=== PATIENT | female | born 1990 | race Two or more races ===

== ENCOUNTER 2022-07-31 18:39 | Emergency (ER) | payer MEDICAID ==
[~2022-07-31] VITALS: Ht 170.2 cm; Wt 96.2 kg
[2022-07-31] MEDS ORDERED: IV NS 0.9% 1,000 ML BAG IV ONE (19:00)
--- NOTE | 2022-07-31 19:10 | NUR ---
IV INSERTED RAC 20G
--- NOTE | 2022-07-31 19:10 | NUR ---
BIB RA 60 C/O DIZZINESS X COUPLE WEEKS HAS BEEN SEEN FOR THIS PRIOR
--- NOTE | 2022-07-31 19:17 | NUR ---
X-RAY AT BEDSIDE
--- NOTE | 2022-07-31 19:21 | NUR ---
REPORT GIVEN TO NURSE BEARD FOR FATEMEH
[2022-07-31 19:22] LABS: BASOPHILS % (AUTO) 0.3 % (0.0-2.0); EOSINOPHILS % (AUTO) 0.3 % (0.0-6.0); HEMATOCRIT 39 % (33-45); HEMOGLOBIN 12.4 g/dL (11.5-14.8); LYMPHOCYTES # (AUTO) 1.6 K/uL (0.8-4.8); LYMPHOCYTES % (AUTO) 12.2 % (20.0-44.0); MEAN CORPUSCULAR HGB CONC 32 g/dl (31.0-36.0); MEAN CORPUSCULAR VOLUME 86 fL (82-100); MONOCYTES # (AUTO) 0.5 K/uL (0.1-1.30); NEUTROPHILS # (AUTO) 11.2 K/uL (1.8-8.9); NEUTROPHILS % (AUTO) 83.2 % (43.0-81.0); PLATELET COUNT (AUTO) 329 K/uL (150-450); WHITE BLOOD COUNT (AUTO) 13.4 K/uL (4.3-11.0)
[2022-07-31 19:41] LABS: CALCIUM, SERUM 9.6 mg/dL (8.5-10.1); CARBON DIOXIDE 21 mmol/L (21-32); CHLORIDE 106 mmol/L (98-107); CREATININE 0.7 mg/dL (0.6-1.3); GLUCOSE 98 mg/dL (74-106); POTASSIUM 3.2 mmol/L (3.5-5.1); SODIUM SERUM 141 mmol/L (136-145); UREA NITROGEN, BLOOD 10 mg/dL (7-18)
[2022-07-31] MEDS ORDERED: ALPRAZOLAM 0.5 MG TABLET ONE (20:29)
[2022-07-31] MEDS ORDERED: ALPRAZOLAM 0.5 MG TABLET PO ONE (20:30)
--- NOTE | 2022-07-31 20:40 | NUR ---
Patient discharged to home in stable condition. Written and verbal after care instructions given. Patient verbalizes understanding of instruction.IV removed. Catheter intact and site benign. Pressure and 4x4 applied to site. No bleeding noted.
[2022-07-31 20:45] VITALS: BP 135/80
== END 2022-07-31 20:46 | disposition home or self-care (01) ==
LOC: ER 18:42
DX: R00.2 Palpitations (principal); F41.9 Anxiety disorder, unspecified
CPT/HCPCS: 99285; 96360; 71045; 93005; 85025; 80048; 84703; 36415; 84484; J7030

== ENCOUNTER 2022-08-02 20:53 | Emergency (ER) | payer MEDICAID ==
[~2022-08-02] VITALS: Ht 170.2 cm; Wt 96.2 kg
--- NOTE | 2022-08-02 21:13 | NUR ---
[id number] FROM HOME FOR ANXIETY SECONDARY TO VERTIGO. PT DIAGNOSED WITH EPISODES OF VERTIGO AND BECOMES VERY ANXIOUS WHEN EPISODES OCCUR. PRESCRIBED WITH MECLIZINE WITH MINIMLA IMPROVEMENT LAST TAKEN AT 1600 AND ATIVAN NOT TAKEN TODAY. PT SUPPOSED TO HAVE A HOLTER MONITOR ON SATURDAY FOR EPISODES OF TACHYCARDIA. ON AMOXICILLIN FOR EAR INFX. PT VERY ANXIOUS ON TRIAGE. V/S WNL TACHY AT 111.
--- NOTE | 2022-08-02 21:14 | NUR ---
UPDATED ELISHA (FATHER) [phone]
--- NOTE | 2022-08-02 21:35 | NUR ---
Patient AOx4, able to express her concerns. Gómez states she has been feeling anxious for a while, has an out pt appt with software design analyst this coming Saturday. Usman with no signs of distress, VSS. Discussed plan of care, kam verbalized agreement.
[2022-08-02] MEDS ORDERED: IV NS 0.9% 1,000 ML BAG IV ONE (23:00)
[2022-08-02] MEDS ORDERED: ALPRAZOLAM 0.5 MG TABLET PO ONE (23:00)
[2022-08-02] MEDS ORDERED: ALPRAZOLAM 0.5 MG TABLET ONE (23:02)
[2022-08-02 23:17] LABS: BASOPHILS % (AUTO) 0.4 % (0.0-2.0); EOSINOPHILS % (AUTO) 3.3 % (0.0-6.0); HEMATOCRIT 37 % (33-45); HEMOGLOBIN 12.4 g/dL (11.5-14.8); LYMPHOCYTES # (AUTO) 0.8 K/uL (0.8-4.8); LYMPHOCYTES % (AUTO) 9.6 % (20.0-44.0); MEAN CORPUSCULAR HGB CONC 33 g/dl (31.0-36.0); MEAN CORPUSCULAR VOLUME 83 fL (82-100); MONOCYTES # (AUTO) 0.3 K/uL (0.1-1.30); MONOCYTES % (AUTO) 3.3 % (2.0-12.0); NEUTROPHILS # (AUTO) 6.9 K/uL (1.8-8.9); NEUTROPHILS % (AUTO) 83.4 % (43.0-81.0); PLATELET COUNT (AUTO) 326 K/uL (150-450); RED BLOOD CELL COUNT(AUTO) 4.51 MIL/uL (4.0-5.2); WHITE BLOOD COUNT (AUTO) 8.3 K/uL (4.3-11.0)
[2022-08-02 23:40] LABS: ALANINE AMINOTRANSFERASE 58 U/L (12-78); ALBUMIN 4.1 g/dL (3.4-5.0); ALKALINE PHOSPHATASE 106 U/L (46-116); ASPARTATE AMINOTRANSFERASE 24 U/L (15-37); BILIRUBIN,DIRECT 0.1 mg/dL (0.0-0.2); BILIRUBIN,TOTAL 0.3 mg/dL (0.2-1.0); CALCIUM, SERUM 9.9 mg/dL (8.5-10.1); CARBON DIOXIDE 22 mmol/L (21-32); CHLORIDE 106 mmol/L (98-107); CREATININE 0.8 mg/dL (0.6-1.3); GLUCOSE 104 mg/dL (74-106); POTASSIUM 3.6 mmol/L (3.5-5.1); SODIUM SERUM 140 mmol/L (136-145); TOTAL PROTEIN, SERUM 8.4 g/dL (6.4-8.2); UREA NITROGEN, BLOOD 11 mg/dL (7-18)
[2022-08-03] MEDS ORDERED: METO-295 PO (00:30)
[2022-08-03] MEDS ORDERED: ALPR0.255 PO (00:30)
[2022-08-03 00:41] LABS: BILIRUBIN,URINE NEGATIVE (NEGATIVE); COLOR,URINE YELLOW (YELLOW); LEUKOCYTE ESTERASE ,URINE 3+ (NEGATIVE); NITRITE, URINE NEGATIVE (NEGATIVE); PH,URINE 7.5 (5.0-8.0); PROTEIN,URINE NEGATIVE (NEGATIVE); UGLUCOSE NEGATIVE (NEGATIVE); UROBILINOGEN,URINE 0.2 EU/dL (0.2)
[2022-08-03 00:47] LABS: BACTERIA,URINE Rare /HPF (None Seen); RBC,URINE 0-2 /HPF (0-2); SQUAMOUS EPITHELIAL CELL,UR Few /HPF (None Seen)
[2022-08-03 01:42] VITALS: BP 112/68
[2022-08-03] MEDS ORDERED: METO25TA4 PO (12:04)
[2022-08-03] MEDS ORDERED: AMOX500C2 PO (12:06)
[2022-08-03] MEDS ORDERED: LORA-259 PO (12:06)
[2022-08-03] MEDS ORDERED: MECL25TA65 PO (12:07)
== END 2022-08-03 01:42 | disposition home or self-care (01) ==
LOC: ER 21:01
DX: R42 Dizziness and giddiness (principal); F41.9 Anxiety disorder, unspecified
CPT/HCPCS: 99284; 96360; 93005; 85025; 80048; 87086; 80076; 84703; 81001; 36415; 84484; J7030

== ENCOUNTER 2022-08-03 03:49 | Inpatient (IN) | payer MEDICAID ==
[~2022-08-03] VITALS: Ht 170.2 cm; Wt 96.2 kg
[~2022-08-03 03:49] MED LIST: ALPR0.255 PO; METO-295 PO
--- NOTE | 2022-08-03 03:50 | NUR ---
[id number] FROM HOME FOR RAPID HR IN 180S WHILE TAKING A SHOWER. HX OF RAPID HR AND PLANNING TO GET HOLTER MONITOR TOMORROW. DISCHARGED EARLIER THIS EVENING WITH [employer] JUSTICE ASSOSCIATED SYMTPOMS OF ANXIETY AND DIZZINESS. PT AWAKE AND ALERT X4 RR EVEN AND UNLABORED ENDORSES GENERALIZED CHEST DISCOMFORT. EMS ECG READ AFLUTTER WITH RVR RATE IN 130-150S WITH EMS. MD AT BEDSIDE FOR EVAL. PLACED ON TRANSACTIONAL PARALEGAL AND PULSE OX FOR CONTINUOUS MONITORING
[2022-08-03] MEDS ORDERED: IV NS 0.9% 1,000 ML BAG IV ONE (04:00)
--- NOTE | 2022-08-03 04:00 | NUR ---
JOY OPERATOR HELPER IV LAC #20G S/L
--- NOTE | 2022-08-03 04:01 | NUR ---
WINDOW MACHINE OPERATOR AT PT'S BEDSIDE
--- NOTE | 2022-08-03 04:14 | NUR ---
OFFICER LIEUTENANT AT PT'S BEDSIDE
--- NOTE | 2022-08-03 04:16 | NUR ---
COVID ANTIGEN SWAB COLLECTED AND SENT TO LAB
[2022-08-03 04:33] LABS: BASOPHILS % (AUTO) 0.3 % (0.0-2.0); EOSINOPHILS % (AUTO) 0.5 % (0.0-6.0); HEMATOCRIT 37 % (33-45); HEMOGLOBIN 11.8 g/dL (11.5-14.8); LYMPHOCYTES % (AUTO) 39.6 % (20.0-44.0); MEAN CORPUSCULAR HGB CONC 33 g/dl (31.0-36.0); MEAN CORPUSCULAR VOLUME 84 fL (82-100); MONOCYTES # (AUTO) 0.5 K/uL (0.1-1.30); MONOCYTES % (AUTO) 6.6 % (2.0-12.0); PLATELET COUNT (AUTO) 301 K/uL (150-450); RED BLOOD CELL COUNT(AUTO) 4.32 MIL/uL (4.0-5.2); WHITE BLOOD COUNT (AUTO) 7.6 K/uL (4.3-11.0)
[2022-08-03 04:43] LABS: CALCIUM, SERUM 9.5 mg/dL (8.5-10.1); CARBON DIOXIDE 19 mmol/L (21-32); CHLORIDE 106 mmol/L (98-107); GLUCOSE 122 mg/dL (74-106); POTASSIUM 2.9 mmol/L (3.5-5.1); SODIUM SERUM 138 mmol/L (136-145); UREA NITROGEN, BLOOD 10 mg/dL (7-18)
[2022-08-03 04:49] LABS: ALANINE AMINOTRANSFERASE 53 U/L (12-78); ALBUMIN 3.8 g/dL (3.4-5.0); ALKALINE PHOSPHATASE 93 U/L (46-116); ASPARTATE AMINOTRANSFERASE 22 U/L (15-37); BILIRUBIN,DIRECT 0.1 mg/dL (0.0-0.2); BILIRUBIN,TOTAL 0.3 mg/dL (0.2-1.0); TOTAL PROTEIN, SERUM 7.8 g/dL (6.4-8.2)
[2022-08-03] MEDS ORDERED: CT SWABBABLE VALVE TRANS SET 1 EA INFUS.SET MC ONE (05:41)
[2022-08-03] MEDS ORDERED: POTASSIUM CHLORIDE 20 MEQ TAB.PRT.SR PO ONE ×3 (05:41→10:00)
[2022-08-03] MEDS ORDERED: IOHEXOL-350 100 ML VIAL IV ONE (05:41)
[2022-08-03] MEDS ORDERED: IV NS 0.9% 250 ML IV ONE (05:41)
--- NOTE | 2022-08-03 05:45 | NUR ---
DR SENA ON PHONE WITH DR RUSSELL
[2022-08-03] MEDS ORDERED: diphenhydrAMINE HCL 50 MG/ML VIAL IV ONE (06:00)
[2022-08-03] MEDS ORDERED: methylPREDNISolone SOD SUCC 125 MG/2ML VIAL IV ONE (06:00)
[2022-08-03] MEDS ORDERED: diphenhydrAMINE HCL 50 MG/ML VIAL ONE (06:02)
[2022-08-03] MEDS ORDERED: methylPREDNISolone SOD SUCC 125 MG/2ML VIAL ONE (06:03)
--- NOTE | 2022-08-03 06:40 | NUR ---
PT TO CT W/ TECH
--- NOTE | 2022-08-03 06:50 | NUR ---
PT BACK FROM CT
--- NOTE | 2022-08-03 07:29 | NUR ---
BED ASSIGNED 108
--- NOTE | 2022-08-03 07:56 | NUR ---
RN NOTE RECEIVED REPORT FROM SHELDON Stockton RN FROM ED. PATIENT IS ASSIGNED TO ROOM 108 TELE.
--- NOTE | 2022-08-03 07:57 | NUR ---
report given to angel luis for contiuation of care
[2022-08-03 08:00] VITALS: BP 117/77
--- NOTE | 2022-08-03 08:00 | NUR ---
RN NOTE PATIENT ARRIVED VIA GURNEY ACCOMPANIED BY GORDO BUI. PATIENT IS ALERT AND ORIENTED X4. VITALS TAKEN: BP: 117/77; HR: 92; BREATHING ON ROOM AIR O2 SAT OF 100%. RR: 17; ORAL TEMP: 98.1F. IV ACCESS ON LAC 20g. TELE MONITOR READING SR. BELONGING ACCOUNTED FOR: T-SHIRT, SANDALS, iPHONE. SKIN INTACT, AMBULATORY. WILL CONTINUE TO MONITOR
[2022-08-03] MEDS ORDERED: Potassium Chloride 10 MEQ in IV D5W 1,000 ML IV PRN (10:00)
[2022-08-03] MEDS ORDERED: METOPROLOL SUCCINATE 25 MG TAB.SR.24H PO SCH (10:00)
[2022-08-03 10:15] VITALS: BP_SYST 108; BP_SYST 126; BP_SYST 128; BP_DIAS 70; BP_DIAS 73; BP_DIAS 78
[2022-08-03 10:27] LABS: THYROID STIMULATING HORMONE 2.434 uIU/mL (0.358-3.74)
[2022-08-03 10:38] LABS: BILIRUBIN,URINE NEGATIVE (NEGATIVE); COLOR,URINE YELLOW (YELLOW); LEUKOCYTE ESTERASE ,URINE 2+ (NEGATIVE); NITRITE, URINE NEGATIVE (NEGATIVE); PROTEIN,URINE NEGATIVE (NEGATIVE); UGLUCOSE NEGATIVE (NEGATIVE); UROBILINOGEN,URINE 0.2 EU/dL (0.2)
[2022-08-03 11:02] LABS: BACTERIA,URINE Rare /HPF (None Seen); RBC,URINE 0-2 /HPF (0-2); SQUAMOUS EPITHELIAL CELL,UR Few /HPF (None Seen)
[2022-08-03] MEDS: MECLIZINE HCL 25 MG TABLET PO SCH ×3 (11:14→20:41)
[2022-08-03 12:00] VITALS: BP 101/52
[2022-08-03] MEDS ORDERED: METO25TA4 PO (12:04)
[2022-08-03] MEDS ORDERED: AMOX500C2 PO (12:06)
[2022-08-03] MEDS ORDERED: LORA-259 PO (12:06)
[2022-08-03] MEDS ORDERED: MECL25TA65 PO (12:07)
--- NOTE | 2022-08-03 12:36 | NUR ---
RN NOTE PATIENT SIGNED CONSENT FOR MRI BRAIN WITHOUT CONTRAST. CONSENT PLACED IN CHART
--- NOTE | 2022-08-03 14:12 | NUR ---
RN NOTE PATIENT WAS PICKED UP BY REILLY LUEVANO, VIA WHEELCHAIR FOR MRI.
--- NOTE | 2022-08-03 15:12 | NUR ---
RN NOTE PATIENT RETURNED FROM MRI AT THIS TIME.
[2022-08-03 16:00] VITALS: BP 98/45
--- NOTE | 2022-08-03 19:20 | NUR ---
RN NOTE RECEIVED PT FOR CONTINUITY OF CARE. PATIENT A/OX4 IN NO S/SX OF ACUTE DISTRESS AT THIS TIME; CURRENTLY ON ROOM AIR; WITH 02 SAT >95% AT THIS TIME. WITH IV ACCESS ON L AC#20 PATENT, INTACT AND FLUSHING WELL. WITH RUNNING IV FLUIDS ORDERED. WILL ENSURE SAFETY MEASURES WITHIN THE SHIFT. PATIENT BED ALARM IS ON. HEAD OF BED ELEVATED. BED IS LOCKED, IN LOWEST POSITION AND SIDE RAILS UP. CALL LIGHT WITHIN REACH OF THE PATIENT WILL CONTINUE TO MONITOR AND REASSESS FOR ANY CHANGES AND WILL CARRY OUT ANY ONGOING AND ACTIVE MD ORDER.
--- NOTE | 2022-08-03 19:54 | NUR ---
RN NOTE PATIENT IS A0X4, IN BED. TELE MONITOR READYING SR. BREATHING ON ROOM AIR WITH 02 SAT OF 99%. IV ACCESS ON LAC#20G RUNNING POTASSIUM CHLORIDE AT 100MLS/HR AT THIS TIME. BED LOCKED IN LOWEST POSITION. ALL SAFETY MEASURES IN PLACE. CALL LIGHT WITHIN REACH. WILL ENDORSE CONTINUITY OF CARE TO FORESTRY AID NURSE.
[2022-08-03 20:00] VITALS: BP_SYST 111; BP_SYST 125; BP_SYST 129; BP_DIAS 60; BP_DIAS 73; BP_DIAS 75
[2022-08-03] MEDS ORDERED: COSYNTROPIN 0.25 MG/VIAL VIAL IV ONE (20:00)
--- NOTE | 2022-08-03 20:40 | NUR ---
RN NOTE CALLED DR. BORJA, VERIFIED AND CONFIRM ORDER FOR COSYNTROPIN, HE SAID GIVE IT NOW THEN REDRAW CORTISOL LEVEL X2 30MINS APART UPON ADMINISTRATION. WILL CARRY OUT AND NOTIFIED LAB S/W CYN AND ANNE. OFFICE SERVICES SPECIALIST WELL AWARE.
--- NOTE | 2022-08-03 21:43 | NUR ---
RN NOTE ORDER SECURED FROM DR. BORJA: NORCO 5/325 Q4H PRN AND ZOFRAN 4MG IV Q4H PRN. RN ACKNOWLEDGED.
[2022-08-03] MEDS ORDERED: ONDANSETRON HCL/PF 4 MG/2 ML VIAL IV PRN (22:00)
[2022-08-03] MEDS ORDERED: HYDROCODONE/APAP 5/325MG TABLET PO PRN (22:00)
[2022-08-04] VITALS: BP_SYST 125; BP_SYST 129; BP_SYST 99; BP_DIAS 59; BP_DIAS 73; BP_DIAS 75
--- NOTE | 2022-08-04 01:58 | NUR ---
RN NOTE PT WOKE UP COMPLAINING PALPITATIONS AND A LITTLE CHEST PRESSURE. OFFERED O2 BUT PT SAID SHE IS BREATHING OK. SR ON MONITOR AND HR 80S. STILL SECURED ORDER FOR EKG. NOTIFIED RT. WILL CONTINUE TO MONITOR.
--- NOTE | 2022-08-04 03:00 | NUR ---
RN NOTE TO CHANGE IV FLUID OF PT; BUT IV FLUID D5W WITH 10MEQ POTASSIUM NOT AVAILABLE; WAS NOT SENT BY PHARMACY DURING THE CHANGE OF SHIFT LAST NIGHT, CHECKED WITH NSG SUP NOT AVAILABLE IN NIGHT LOCKER WILL F/U WITH PHARMACY ONCE OPEN. Addendum: 08/04/22 at 0702 by CHAYA HORNER RN @0700 CALLED PHARMACY AND S/W GENE. FOLLOWED UP WITH IV FLUID HE ACKNOWLEDGED. WILL SEND IV BAG LIZ. WILL ENDORSE TO AM SHIFT TO FOLLOW THROUGH. SALESPERSON SEWING MACHINES MADE AWARE.
[2022-08-04 04:00] VITALS: BP_SYST 129; BP_SYST 98; BP_SYST 99; BP_DIAS 54; BP_DIAS 59; BP_DIAS 73
[2022-08-04] MEDS: MECLIZINE HCL 25 MG TABLET PO SCH ×2 (04:30→13:34)
--- NOTE | 2022-08-04 06:31 | NUR ---
RN NOTE PATIENT REMAINS IN ROOM IN NO SIGNS OF RESPIRATORY DISTRESS, PATIENT STILL ON ROOM AIR; TOLERATING WELL SATURATING @ >95% SP02. SAFETY MEASURES IMPLEMENTED, BED IN LOWEST POSITION, LOCKED, SIDE RAILS UP, CALL LIGHT WITHIN REACH. ALL NEEDS AND ORDERS ADDRESSED DURING THE SHIFT. IV ACCESS MAINTAINED INTACT, SECURED AND FLUSHING WELL. ALL DUE MEDS GIVEN ORDERED & SCHEDULED; PATIENT TOLERATED WELL. PATIENT KEPT CLEAN AND COMFORTABLE WITHIN THE SHIFT. EKG DONE DURING THE SHIFT; NSR. PATIENT ENDORSED TO INCOMING SHIFT RN WITH STABLE VITAL SIGN AND FOR CONTINUITY OF CARE.
[2022-08-04 06:58] LABS: CALCIUM, SERUM 9.6 mg/dL (8.5-10.1); CREATININE 0.8 mg/dL (0.6-1.3); POTASSIUM 4.2 mmol/L (3.5-5.1)
[2022-08-04 08:00] VITALS: BP 115/71
[2022-08-04] MEDS ORDERED: METOPROLOL SUCCINATE 25 MG TAB.SR.24H PO SCH ×2 (10:00)
[2022-08-04 12:00] VITALS: BP 108/66
[2022-08-04] MEDS ORDERED: Potassium Chloride 10 MEQ in IV D5W 1,000 ML IV SCH (14:31)
[2022-08-04 16:00] VITALS: BP 104/57
--- NOTE | 2022-08-04 17:08 | NUR ---
RN NOTE PATIENT DISCHARGED HOME, ALL PATIENT BELONGINGS ACCOUNTED FOR, PATIENT DISCHARGE PACKET SIGNED AND UNDERSTOOD BY PATIENT. ALL VITALS STABLE. LEFT VIA WHEELCHAIR WITH FATHER. ID BAND, IV ACCESS REMOVED, AND TELE BOX REMOVED. CHARGE NURSE AWARE,
== END 2022-08-04 17:00 | disposition home or self-care (01) | DRG 111 ==
LOC: ER 04:01 → TELE1 08:22
PROVIDERS: ADMIT Internal Medicine; ATTEND Internal Medicine
DX: H81.399 Other peripheral vertigo, unspecified ear (principal); E87.6 Hypokalemia; R00.2 Palpitations; F41.9 Anxiety disorder, unspecified; Z20.822 Contact with and (suspected) exposure to COVID-19; Z79.899 Other long term (current) drug therapy; Z91.041 Radiographic dye allergy status; R00.0 Tachycardia, unspecified
CPT/HCPCS: 36415; 70551-TC; 71045-TC; 80048-TC; 80076-TC; 81001; 82533; 83735-TC; 84439-TC; 84443-TC; 84484-TC; 85025-TC; 85378-TC; 87081-TC; 87086-TC; 93307-TC; A4223; C9803; G0378; J0834; J1200; J2930; J3480; J7030; J7050; J7070; J8597; Q9967

== ENCOUNTER 2022-08-06 15:51 | Emergency (ER) | payer MEDICAID ==
[~2022-08-06] VITALS: Ht 170.2 cm; Wt 96.2 kg
[~2022-08-06 15:51] MED LIST changes: +MECL25TA65 PO; +METO25TA4 PO
[2022-08-06 18:05] LABS: BASOPHILS % (AUTO) 0.4 % (0.0-2.0); EOSINOPHILS % (AUTO) 0.4 % (0.0-6.0); HEMATOCRIT 39 % (33-45); HEMOGLOBIN 12.4 g/dL (11.5-14.8); LYMPHOCYTES # (AUTO) 2.6 K/uL (0.8-4.8); LYMPHOCYTES % (AUTO) 30.6 % (20.0-44.0); MEAN CORPUSCULAR HGB CONC 32 g/dl (31.0-36.0); MEAN CORPUSCULAR VOLUME 85 fL (82-100); MONOCYTES # (AUTO) 0.5 K/uL (0.1-1.30); NEUTROPHILS # (AUTO) 5.3 K/uL (1.8-8.9); NEUTROPHILS % (AUTO) 62.6 % (43.0-81.0); PLATELET COUNT (AUTO) 358 K/uL (150-450); WHITE BLOOD COUNT (AUTO) 8.4 K/uL (4.3-11.0)
[2022-08-06 18:19] LABS: CALCIUM, SERUM 9.7 mg/dL (8.5-10.1); CARBON DIOXIDE 23 mmol/L (21-32); CHLORIDE 105 mmol/L (98-107); CREATININE 0.8 mg/dL (0.6-1.3); GLUCOSE 104 mg/dL (74-106); POTASSIUM 3.6 mmol/L (3.5-5.1); SODIUM SERUM 140 mmol/L (136-145); UREA NITROGEN, BLOOD 7 mg/dL (7-18)
--- NOTE | 2022-08-06 18:57 | NUR ---
urine sample collected and sent to lab
[2022-08-06 19:17] VITALS: BP 129/81
[2022-08-06 20:16] LABS: BILIRUBIN,URINE NEGATIVE (NEGATIVE); COLOR,URINE YELLOW (YELLOW); LEUKOCYTE ESTERASE ,URINE 3+ (NEGATIVE); NITRITE, URINE NEGATIVE (NEGATIVE); PROTEIN,URINE NEGATIVE (NEGATIVE); UGLUCOSE NEGATIVE (NEGATIVE); UROBILINOGEN,URINE 0.2 EU/dL (0.2)
[2022-08-06 20:33] LABS: BACTERIA,URINE 3+ /HPF (None Seen); RBC,URINE 0-2 /HPF (0-2); SQUAMOUS EPITHELIAL CELL,UR 0-2 /HPF (None Seen); WBC,URINE 51-80 /HPF (0-3)
[2022-08-06] MEDS ORDERED: CEPH500C2 PO (20:44)
== END 2022-08-06 19:17 | disposition home or self-care (01) ==
LOC: ER 15:56
DX: F41.9 Anxiety disorder, unspecified (principal); R82.71 Bacteriuria; R00.2 Palpitations; Z79.899 Other long term (current) drug therapy
CPT/HCPCS: 36415; 80048-TC; 81001; 84484-TC; 85025-TC; 87086-TC

== ENCOUNTER → 2022-08-10 | Emergency (ER) | payer MEDICAID ==
[~2022-08-10] VITALS: Ht 170.2 cm; Wt 96.2 kg
[~2022-08-10] MED LIST changes: +CEPH500C2 PO
--- NOTE | 2022-08-10 23:31 | NUR ---
FATHER [phone]
--- NOTE | 2022-08-10 23:51 | NUR ---
BIBRA89 FRM HOME FOR PALPITATIONS AND INTERMITENT CHEST PAIN X THIS AM. PATIENT TRANSFERRED TO BED A LITTLE ANXIOUS. PATIENT PLACED IN GOWN. PATIENT CONNECTED TO POX AND MONITOR, RR EVEN AND UNLABORED ON ROOM AIR. VITALS WITHIN LIMITS, FAMILY AT BEDSIDE.
--- NOTE | 2022-08-10 23:52 | NUR ---
BLOOD DRAWN AND SENT TO LAB, AWAITING RESULTS.
--- NOTE | 2022-08-10 23:55 | NUR ---
PATIENT UNABLE TO PROVIDE URINE SMAPLE AT THIS TIME
[2022-08-10 23:58] LABS: BASOPHILS % (AUTO) 0.5 % (0.0-2.0); EOSINOPHILS % (AUTO) 1.9 % (0.0-6.0); HEMATOCRIT 36 % (33-45); HEMOGLOBIN 11.8 g/dL (11.5-14.8); LYMPHOCYTES # (AUTO) 2.2 K/uL (0.8-4.8); LYMPHOCYTES % (AUTO) 26.1 % (20.0-44.0); MEAN CORPUSCULAR HGB CONC 33 g/dl (31.0-36.0); MEAN CORPUSCULAR VOLUME 83 fL (82-100); MONOCYTES # (AUTO) 0.5 K/uL (0.1-1.30); MONOCYTES % (AUTO) 6.1 % (2.0-12.0); NEUTROPHILS # (AUTO) 5.5 K/uL (1.8-8.9); NEUTROPHILS % (AUTO) 65.4 % (43.0-81.0); PLATELET COUNT (AUTO) 324 K/uL (150-450); RED BLOOD CELL COUNT(AUTO) 4.31 MIL/uL (4.0-5.2); WHITE BLOOD COUNT (AUTO) 8.4 K/uL (4.3-11.0)
[2022-08-11 00:14] LABS: ALANINE AMINOTRANSFERASE 46 U/L (12-78); ALBUMIN 3.8 g/dL (3.4-5.0); ALKALINE PHOSPHATASE 121 U/L (46-116); ASPARTATE AMINOTRANSFERASE 14 U/L (15-37); BILIRUBIN,DIRECT 0.1 mg/dL (0.0-0.2); BILIRUBIN,TOTAL 0.2 mg/dL (0.2-1.0); CALCIUM, SERUM 9.3 mg/dL (8.5-10.1); CARBON DIOXIDE 22 mmol/L (21-32); CHLORIDE 105 mmol/L (98-107); CREATININE 0.7 mg/dL (0.6-1.3); GLUCOSE 110 mg/dL (74-106); POTASSIUM 3.7 mmol/L (3.5-5.1); SODIUM SERUM 138 mmol/L (136-145); TOTAL PROTEIN, SERUM 7.9 g/dL (6.4-8.2); UREA NITROGEN, BLOOD 9 mg/dL (7-18)
[2022-08-11 00:15] LABS: D-DIMER 0.22 mg/L(FEU (0.17-0.50)
--- NOTE | 2022-08-11 00:30 | NUR ---
DOCTOR AT BEDSIDE SPEAKING TO PATIENT AWAITING ORDERS
--- NOTE | 2022-08-11 01:24 | NUR ---
URINE SPECIMEN COLLECTED AND SENT TO LAB.
--- NOTE | 2022-08-11 05:48 | NUR ---
UMANG HALL REGLOU @[phone] TRANSFER INFO: ACCEPTING DR. RUSSELL TO [facility] ROOM 205-A ROSIE CARO RECEIVING REPORT @ [phone] REGLOU WILL CALL WITH TRANSFER INFO
--- NOTE | 2022-08-11 06:04 | NUR ---
0830 [facility] ETA
--- NOTE | 2022-08-11 07:30 | NUR ---
RECEIVED REPORT FROM JONNA CARO. PT AOX3. ABLE TO DENY CHEST PAIN AT THIS MOMENT. NO RESP DISTRESS NOTED. NEEDS ATTENDED PROMPTLY.
--- NOTE | 2022-08-11 07:45 | NUR ---
CD RECEIVED FROM LAB. KEPT IN CHART.
--- NOTE | 2022-08-11 08:29 | NUR ---
PT PICKED UP BY [facility] VIA [facility] WITH [facility]. GAVE REPORT AND PACKET WAS GIVEN WITH CD.
[2022-08-11 08:37] VITALS: BP 116/70
== END | disposition short-term general hospital (02) ==
LOC: ER 23:15
DX: R07.9 Chest pain, unspecified (principal); R00.2 Palpitations; R42 Dizziness and giddiness; G90.A Postural orthostatic tachycardia syndrome [POTS]; Z88.8 Allergy status to other drugs, medicaments and biological substances; Z79.899 Other long term (current) drug therapy; Z20.822 Contact with and (suspected) exposure to COVID-19
CPT/HCPCS: 99285; 71045; 87426; 93005; 85025; 80048; 80076; 85378; 36415; 84484; 85730; 82962; 80307; C9803

== ENCOUNTER 2022-08-16 02:22 | Emergency (ER) | payer MEDICAID ==
[~2022-08-16] VITALS: Ht 172.7 cm; Wt 96.2 kg
[2022-08-16 04:50] VITALS: BP 99/65
--- NOTE | 2022-08-16 04:52 | NUR ---
Hortencia AOx4, able to express her concerns. Patient states she has been experiencing pain to right Ac area where her IV was removed. Explained plan of care, patient verbalized agreement.
== END 2022-08-16 05:08 | disposition home or self-care (01) ==
LOC: ER 02:25
DX: Z71.1 Person with feared health complaint in whom no diagnosis is made (principal); Z48.00 Encounter for change or removal of nonsurgical wound dressing; Z79.899 Other long term (current) drug therapy

== ENCOUNTER 2022-08-16 08:02 | Emergency (ER) | payer MEDICAID ==
[~2022-08-16] VITALS: Ht 170.2 cm; Wt 90.7 kg
--- NOTE | 2022-08-16 08:15 | NUR ---
RADHA DE ANDA From "Home Palpitations/Chest Pain. Crying/Anxious SINCE 1 DAY AGO
--- NOTE | 2022-08-16 08:20 | NUR ---
EKG DONE BY GORDO IRVING
--- NOTE | 2022-08-16 08:25 | NUR ---
DR RASHID AT BEDSIDE FOR EVAL
--- NOTE | 2022-08-16 08:49 | NUR ---
Pt remains anxious/crying. Offered anti- anxiety meds. Refused Reiterated [facility] apparently has PMD appointment at 1600 today Patient discharged to home in stable condition. Written and verbal after care instructions given. Patient verbalizes understanding of instruction.
[2022-08-16 08:52] VITALS: BP 118/67
== END 2022-08-16 08:52 | disposition home or self-care (01) ==
LOC: ER 08:06
DX: R00.2 Palpitations (principal); Z79.899 Other long term (current) drug therapy

== ENCOUNTER 2023-09-21 14:22 | Emergency (ER) | payer MEDICAID, OTHER ==
[~2023-09-21] VITALS: Ht 172.7 cm; Wt 104.3 kg
[2023-09-21 16:00] LABS: BASOPHILS % (AUTO) 0.6 % (0.0-2.0); EOSINOPHILS # (AUTO) 0.1 K/uL (0.0-0.7); EOSINOPHILS % (AUTO) 1.4 % (0.0-6.0); HEMATOCRIT 38 % (33-45); HEMOGLOBIN 12.7 g/dL (11.5-14.8); LYMPHOCYTES # (AUTO) 2.1 K/uL (0.8-4.8); LYMPHOCYTES % (AUTO) 28.4 % (20.0-44.0); MEAN CORPUSCULAR HEMOGLOBIN 29 PG (26.0-33.0); MEAN CORPUSCULAR HGB CONC 34 g/dl (31.0-36.0); MEAN CORPUSCULAR VOLUME 87 fL (82-100); MONOCYTES # (AUTO) 0.4 K/uL (0.1-1.30); MONOCYTES % (AUTO) 4.8 % (2.0-12.0); NEUTROPHILS # (AUTO) 4.9 K/uL (1.8-8.9); NEUTROPHILS % (AUTO) 64.8 % (43.0-81.0); PLATELET COUNT (AUTO) 278 K/uL (150-450); RED BLOOD CELL COUNT(AUTO) 4.34 MIL/uL (4.0-5.2); RED CELL DISTRIBUTION WIDTH 13.5 % (11.5-15.0); WHITE BLOOD COUNT (AUTO) 7.5 K/uL (4.3-11.0)
[2023-09-21 16:19] LABS: CALCIUM, SERUM 8.7 mg/dL (8.5-10.1); CARBON DIOXIDE 22 mmol/L (21-32); CHLORIDE 104 mmol/L (98-107); CREATININE 0.6 mg/dL (0.6-1.3); GLUCOSE 100 mg/dL (74-106); POTASSIUM 3.6 mmol/L (3.5-5.1); SODIUM SERUM 137 mmol/L (136-145); UREA NITROGEN, BLOOD 7 mg/dL (7-18)
[2023-09-21 17:59] LABS: PREGNANCY TEST URINE QUAL NEGATIVE (NEGATIVE)
[2023-09-21 18:03] LABS: APPEARANCE,URINE CLEAR (CLEAR); BILIRUBIN,URINE NEGATIVE (NEGATIVE); BLOOD, URINE NEGATIVE Ery/uL (NEGATIVE); COLOR,URINE YELLOW (YELLOW); KETONES,URINE NEGATIVE (NEGATIVE); LEUKOCYTE ESTERASE ,URINE NEGATIVE (NEGATIVE); NITRITE, URINE NEGATIVE (NEGATIVE); PROTEIN,URINE NEGATIVE (NEGATIVE); UGLUCOSE NEGATIVE (NEGATIVE); UROBILINOGEN,URINE 0.2 EU/dL (0.2)
[2023-09-21 19:28] VITALS: BP 128/78; TEMP 98.2; O2SAT 98
== END 2023-09-21 19:29 | disposition home or self-care (01) ==
LOC: ER 14:33
DX: R00.2 Palpitations (principal); R00.0 Tachycardia, unspecified; R10.2 Pelvic and perineal pain; Z87.448 Personal history of other diseases of urinary system; Z87.42 Personal history of other diseases of the female genital tract; Z91.041 Radiographic dye allergy status
CPT/HCPCS: 36415; 71045-TC; 80048-TC; 84484-TC; 84702-TC; 84703-TC; 85025-TC

== ENCOUNTER 2024-04-01 00:11 | Emergency (ER) | payer OTHER ==
[~2024-04-01] VITALS: Ht 172.7 cm; Wt 103.9 kg
[2024-04-01 01:49] LABS: BASOPHILS % (AUTO) 0.3 % (0.0-2.0); EOSINOPHILS # (AUTO) 0.1 K/uL (0.0-0.7); EOSINOPHILS % (AUTO) 1.3 % (0.0-6.0); HEMATOCRIT 37 % (33-45); HEMOGLOBIN 12.8 g/dL (11.5-14.8); LYMPHOCYTES # (AUTO) 2.4 K/uL (0.8-4.8); LYMPHOCYTES % (AUTO) 26.6 % (20.0-44.0); MEAN CORPUSCULAR HEMOGLOBIN 30 PG (26.0-33.0); MEAN CORPUSCULAR HGB CONC 34 g/dl (31.0-36.0); MEAN CORPUSCULAR VOLUME 87 fL (82-100); MONOCYTES # (AUTO) 0.5 K/uL (0.1-1.30); MONOCYTES % (AUTO) 5.1 % (2.0-12.0); NEUTROPHILS % (AUTO) 66.7 % (43.0-81.0); PLATELET COUNT (AUTO) 331 K/uL (150-450); RED BLOOD CELL COUNT(AUTO) 4.28 MIL/uL (4.0-5.2); RED CELL DISTRIBUTION WIDTH 12.9 % (11.5-15.0)
[2024-04-01 01:52] LABS: CALCIUM, SERUM 8.8 mg/dL (8.5-10.1); CARBON DIOXIDE 26 mmol/L (21-32); CHLORIDE 107 mmol/L (98-107); CREATININE 0.7 mg/dL (0.6-1.3); GLUCOSE 107 mg/dL (74-106); POTASSIUM 4.3 mmol/L (3.5-5.1); SODIUM SERUM 143 mmol/L (136-145); UREA NITROGEN, BLOOD 11 mg/dL (7-18)
[2024-04-01 04:46] VITALS: BP 132/77; TEMP 98.7; O2SAT 99
== END 2024-04-01 04:48 | disposition home or self-care (01) ==
LOC: ER 00:14
DX: R07.89 Other chest pain (principal); R00.0 Tachycardia, unspecified; G90.A Postural orthostatic tachycardia syndrome [POTS]; G43.909 Migraine, unspecified, not intractable, without status migrainosus; I48.91 Unspecified atrial fibrillation; Z79.899 Other long term (current) drug therapy; Z88.8 Allergy status to other drugs, medicaments and biological substances; Z91.041 Radiographic dye allergy status
CPT/HCPCS: 36415; 71045-TC; 80048-TC; 84484-TC; 85025-TC

== ENCOUNTER 2024-10-16 10:34 | Emergency (ER) | payer OTHER ==
[~2024-10-16] VITALS: Ht 167.6 cm; Wt 101.2 kg
[2024-10-16] MEDS ORDERED: BENZONATATE 100 MG CAPSULE PO ONE ×2 (11:42→11:45)
[2024-10-16] MEDS ORDERED: PSEUDOEPHEDRINE HCL 30 MG TABLET ONE (11:42)
[2024-10-16] MEDS: BENZONATATE 100 MG CAPSULE PO PRN (11:44)
[2024-10-16] MEDS: PSEUDOEPHEDRINE HCL 30 MG TABLET PO ONE (11:44)
[2024-10-16] MEDS ORDERED: BENZ-13 PO (12:12)
[2024-10-16] MEDS ORDERED: ALBU18HF2 INH (12:12)
[2024-10-16 12:50] VITALS: BP 117/72; TEMP 98.6; O2SAT 100
== END 2024-10-16 12:51 | disposition home or self-care (01) ==
LOC: ER 10:39
DX: U07.1 COVID-19 (principal); R05.9 Cough, unspecified; R09.81 Nasal congestion; Z79.899 Other long term (current) drug therapy; Z91.041 Radiographic dye allergy status
CPT/HCPCS: 71045-TC